=== PATIENT | female | born 1995 | race Caucasian/White ===

== ENCOUNTER 2017-02-16 04:17 | Emergency (ER) | payer OTHER ==
[2017-02-16 04:32] LABS: EOSINOPHIL (%) 2.3 % (0-5); EOSINOPHIL COUNT 0.1 K/uL (0-0.3); HEMATOCRIT 36.9 % (36.0-46.0); IMMATURE GRANULOCYTE (%) 0.2 % (0.0-0.7); INSTRUMENT ABS NEUTROPHIL CT 3.8 K/uL; LYMPHOCYTE COUNT 1.6 K/uL (1.0-2.8); MCH 30.9 PG (29.0-34.0); MCHC 33.9 G/DL (30.0-36.0); MCV 91.3 FL (83-99); MEAN PLAT.VOLUME 9.8 uM^3 (9.5-12.4); MONOCYTE (%) 10.2 % (3-12); MONOCYTE COUNT 0.6 K/uL (0-0.8); NEUTROPHIL (%) 61.5 % (45-76); NEUTROPHIL COUNT 3.8 K/uL (1.8-6.4); PLATELET COUNT 230 K/uL (156-360); RBC DIS.WIDTH-CV 11.6 % (11.8-14.6); RBC DIS.WIDTH-SD 39.1 % (39-53); RED BLOOD COUNT 4.04 M/uL (3.80-5.20); WHITE BLOOD COUNT 6.2 K/uL (4.1-10.2)
[2017-02-16 04:43] LABS: AMYLASE 27 IU/L (1-118); CHLORIDE 107 mEq/L (99-109); POTASSIUM 3.8 mEq/L (3.7-5.4); SODIUM 138 mEq/L (136-147)
[2017-02-16 04:44] LABS: GLUCOSE 105 mg/dL (70-99)
[2017-02-16 04:46] LABS: ANION GAP 7 MEQ/L (2-14)
[2017-02-16 04:48] LABS: SERUM ETHYL ALCOHOL < 10 mg/dL
[2017-02-16 04:49] LABS: UREA NITROGEN (BUN) 8 mg/dL (9-23)
[2017-02-16 04:51] LABS: LIPASE 14 U/L (1.0-51.0)
[2017-02-16 04:57] LABS: QUANTITATIVE HCG < 4.0 MIU/ML
[2017-02-16 04:59] LABS: GFR ESTIMATE (CALCULATED) > 59 mL/min/
== END 2017-02-16 06:45 | disposition home or self-care (01) ==
LOC: TRA 04:17
PROVIDERS: Emergency Medicine
DX: S01.01XA Laceration without foreign body of scalp, initial encounter (principal); S01.81XA Laceration without foreign body of other part of head, initial encounter; S06.0X0A Concussion without loss of consciousness, initial encounter; V49.50XA Passenger injured in collision with unspecified motor vehicles in traffic accident, initial encounter; Z23 Encounter for immunization
CPT/HCPCS: 70450; 71010; 71260; 72125; 72129; 72132; 73030; 74177; 80048; 81003; 82150; 83690; 84702; 85025; 86850; 86900; 86901; 99281; 99285; G0480; J1885; J2270; J2405; J3010